=== PATIENT | male | born 1985 | race Caucasian/White ===

== ENCOUNTER → 2017-12-26 | Outpatient (CLI) | payer BC, OTHER ==
[2017-12-26 08:47] LABS: BILIRUBIN,TOTAL 0.4 mg/dL (0.2-1.0); CREATININE 0.8 mg/dL (0.6-1.3); POTASSIUM 3.4 mmol/L (3.5-5.1); TOTAL PROTEIN, SERUM 7.8 g/dL (6.4-8.2)
[2017-12-26 08:53] LABS: THYROID STIMULATING HORMONE 2.967 mIU/mL (0.358-3.740)
[2017-12-26 09:12] LABS: BASOPHILS # (AUTO) 0.1 K/uL (0.0-8.0); BASOPHILS % (AUTO) 0.5 % (0.0-2.0); EOSINOPHILS # (AUTO) 0.1 K/uL (0.0-0.7); HEMATOCRIT 43.8 % (36.7-47.1); HEMOGLOBIN 15.3 g/dL (12.5-16.3); LYMPHOCYTES # (AUTO) 2.2 K/uL (20.0-40.0); LYMPHOCYTES % (AUTO) 15.8 % (20.5-51.5); MEAN CORPUSCULAR HEMOGLOBIN 30.1 uug (23.8-33.4); MEAN CORPUSCULAR HGB CONC 35 g/dL (32.5-36.3); MONOCYTES # (AUTO) 0.9 K/uL (2.0-10.0); MONOCYTES % (AUTO) 6.7 % (0.0-11.0); NEUTROPHILS # (AUTO) 10.5 K/uL (1.8-8.9); PLATELET COUNT (AUTO) 179 K/uL (152-348); RED BLOOD CELL COUNT(AUTO) 5.09 MIL/uL (4.06-5.63); WHITE BLOOD COUNT (AUTO) 13.8 K/uL (3.6-10.2)
[2017-12-26 21:17] LABS: *BILIRUBIN,URIN NEGATIVE (NEGATIVE); *BLOOD, URINE Trace-lysed (NEGATIVE); *CLARITY,URINE CLEAR (CLEAR); *COLOR,URINE YELLOW (YELLOW); *KETONES,URINE NEGATIVE (NEGATIVE); *PROTEIN,URINE NEGATIVE (NEGATIVE); *UROBILINOGEN,URINE 0.2 E.U./dl (NORMAL); LEUKOCYTE ESTERASE ,URINE 1+ (NEGATIVE); NITRITE, URINE NEGATIVE (NEGATIVE); UGLUCOSE NEGATIVE (NEGATIVE)
[2017-12-26 21:57] LABS: MUCUS,URINE FEW /LPF (0-FEW)
== END | disposition home or self-care (01) ==
LOC: US 07:21
DX: N13.0 Hydronephrosis with ureteropelvic junction obstruction (principal)
CPT/HCPCS: 36415; 76770; 84443; 85025; 87086; 87806

== ENCOUNTER 2018-03-16 14:18 | Outpatient (CLI) | payer BC, OTHER | END 2018-03-16 23:59 | disposition home or self-care (01) | LOC: RAD 14:18 | DX: N13.30 Unspecified hydronephrosis (principal); N20.1 Calculus of ureter ==

== ENCOUNTER 2018-03-23 16:04 | Inpatient (IN) | payer BC, OTHER ==
[~2018-03-23] VITALS: Ht 185.4 cm; Wt 81.6 kg
[2018-03-23] MEDS ORDERED: Z GUARD REMEDY PASTE 57 GM TUBE TOP PRN (16:45)
[2018-03-23] MEDS ORDERED: ONDANSETRON 4 MG/2 ML VIAL IV PRN (16:45)
[2018-03-23] MEDS ORDERED: ACETAMINOPHEN 325 MG TABLET PO PRN (16:45)
[2018-03-23] MEDS ORDERED: MAGNESIUM HYDROXIDE 30 ML LIQUID UDC PO PRN (16:45)
[2018-03-23 16:47] LABS: *BILIRUBIN,URIN NEGATIVE (NEGATIVE); *BLOOD, URINE NEGATIVE (NEGATIVE); *CLARITY,URINE CLEAR (CLEAR); *COLOR,URINE LIGHT YELLOW (YELLOW); *KETONES,URINE NEGATIVE (NEGATIVE); *PROTEIN,URINE NEGATIVE (NEGATIVE); *UROBILINOGEN,URINE 0.2 E.U./dl (NORMAL); LEUKOCYTE ESTERASE ,URINE TRACE (NEGATIVE); NITRITE, URINE NEGATIVE (NEGATIVE); UGLUCOSE NEGATIVE (NEGATIVE)
[2018-03-23 16:55] LABS: BACTERIA,URINE NONE SEEN /HPF (NONE SEEN); RBC,URINE 0-3 /HPF (0-3); SQUAMOUS EPITHELIAL CELL,UR NONE SEEN /HPF (NONE SEEN)
[2018-03-23 16:56] LABS: WBC,URINE 0-3 /HPF (0-3)
[2018-03-23 17:01] LABS: BASOPHILS % (AUTO) 0.3 % (0.0-2.0); EOSINOPHILS % (AUTO) 0.1 % (0.0-7.0); HEMATOCRIT 47.4 % (36.7-47.1); LYMPHOCYTES # (AUTO) 0.8 K/uL (20.0-40.0); LYMPHOCYTES % (AUTO) 9.7 % (20.5-51.5); MEAN CORPUSCULAR HGB CONC 34 g/dL (32.5-36.3); MONOCYTES # (AUTO) 0.5 K/uL (2.0-10.0); MONOCYTES % (AUTO) 5.6 % (0.0-11.0); NEUTROPHILS # (AUTO) 7.3 K/uL (1.8-8.9); NEUTROPHILS % (AUTO) 84.3 % (38.5-71.5); PLATELET COUNT (AUTO) 202 K/uL (152-348); RED BLOOD CELL COUNT(AUTO) 5.32 MIL/uL (4.06-5.63); WHITE BLOOD COUNT (AUTO) 8.7 K/uL (3.6-10.2)
[2018-03-23 17:08] LABS: POTASSIUM 3.6 mmol/L (3.5-5.1)
[2018-03-23 17:09] LABS: CREATININE 0.8 mg/dL (0.6-1.3)
[2018-03-23 17:44] VITALS: BP 130/85
[2018-03-23] MEDS: HYDROCODONE/APAP 10-325 MG TABLET PO PRN (17:49)
[2018-03-23] MEDS: IV NS 1000 ML 1,000 ML IV PRN (17:50)
[2018-03-23 20:39] VITALS: BP 128/85
[2018-03-24] MEDS: HYDROCODONE/APAP 10-325 MG TABLET PO PRN ×4 (00:49→22:09)
[2018-03-24] MEDS: IV NS 1000 ML 1,000 ML IV PRN ×2 (05:20→22:11)
[2018-03-24 05:36] VITALS: BP 107/53
[2018-03-24 06:54] LABS: BASOPHILS % (AUTO) 0.4 % (0.0-2.0); EOSINOPHILS # (AUTO) 0.1 K/uL (0.0-0.7); EOSINOPHILS % (AUTO) 1.5 % (0.0-7.0); HEMATOCRIT 41.2 % (36.7-47.1); HEMOGLOBIN 14.2 g/dL (12.5-16.3); LYMPHOCYTES # (AUTO) 2.8 K/uL (20.0-40.0); LYMPHOCYTES % (AUTO) 35.3 % (20.5-51.5); MEAN CORPUSCULAR HEMOGLOBIN 30.6 uug (23.8-33.4); MEAN CORPUSCULAR HGB CONC 34 g/dL (32.5-36.3); MONOCYTES # (AUTO) 0.9 K/uL (2.0-10.0); MONOCYTES % (AUTO) 11.6 % (0.0-11.0); NEUTROPHILS % (AUTO) 51.2 % (38.5-71.5); PLATELET COUNT (AUTO) 166 K/uL (152-348); RED BLOOD CELL COUNT(AUTO) 4.63 MIL/uL (4.06-5.63); WHITE BLOOD COUNT (AUTO) 7.9 K/uL (3.6-10.2)
[2018-03-24 07:10] LABS: CARBON DIOXIDE 27 mmol/L (21-32); CHLORIDE 107 mmol/L (98-107); CREATININE 0.7 mg/dL (0.6-1.3); GLUCOSE 91 mg/dL (74-106); MAGNESIUM 1.7 mg/dL (1.8-2.4); PHOSPHOROUS 3.4 mg/dL (2.5-4.9); POTASSIUM 3.8 mmol/L (3.5-5.1); UREA NITROGEN, BLOOD 12 mg/dL (7-18)
[2018-03-24] MEDS ORDERED: MAGNESIUM SULFATE/D5W 100 ML IV SCH (09:15)
[2018-03-24 11:05] VITALS: BP 109/56
[2018-03-24 15:17] VITALS: BP 124/59
[2018-03-24 20:00] VITALS: BP 124/82
[2018-03-25 04:00] VITALS: BP_SYST 110; BP_SYST 118; BP_DIAS 26; BP_DIAS 56
[2018-03-25 11:19] VITALS: BP 117/75
[2018-03-25] MEDS: HYDROCODONE/APAP 10-325 MG TABLET PO PRN (12:36)
[2018-03-25 15:10] VITALS: BP 115/75
[2018-03-25] MEDS ORDERED: HYDR-548 PO (18:29)
== END 2018-03-25 19:05 | disposition home or self-care (01) | DRG 694 ==
LOC: ER 16:06 → MED 17:01
PROVIDERS: ADMIT Internal Medicine; ATTEND Internal Medicine
DX: N13.2 Hydronephrosis with renal and ureteral calculous obstruction (principal); E83.42 Hypomagnesemia; Z87.442 Personal history of urinary calculi
CPT/HCPCS: 36415; 83735; 84100; 84550; 85025; 85730; A4663; J3475; J7030

== ENCOUNTER 2018-04-24 09:51 | Outpatient (CLI) | payer BC, OTHER ==
[~2018-04-24 09:51] MED LIST: HYDR-548 PO
== END 2018-04-24 23:59 | disposition home or self-care (01) ==
LOC: XRAY 09:51
DX: N20.2 Calculus of kidney with calculus of ureter (principal)
CPT/HCPCS: 74018

== ENCOUNTER 2018-05-14 07:39 | Outpatient (CLI) | payer BC, OTHER | END 2018-05-15 10:47 | disposition home or self-care (01) | LOC: XRAY 07:39 | DX: N20.0 Calculus of kidney (principal); M41.85 Other forms of scoliosis, thoracolumbar region; Z96.0 Presence of urogenital implants | CPT/HCPCS: 74018 ==